=== PATIENT | male | born 1990 | race Caucasian/White ===

== ENCOUNTER 2018-03-20 10:30 | Day surgery (SDC) | payer OTHER ==
[~2018-03-20] VITALS: Ht 177.8 cm; Wt 94.8 kg
[2018-03-20] MEDS ORDERED: NS IRRIG SOLN 1000 ML IR ONE (13:15)
[2018-03-20] MEDS ORDERED: MIDAZOLAM HCL 5 MG/5 ML VIAL IVP ONE (13:15)
[2018-03-20] MEDS ORDERED: OXYMETAZOLINE HCL 0.05% NASAL SPRAY NS ONE (13:15)
[2018-03-20] MEDS ORDERED: GLYCOPYRROLATE 0.2 MG/ML VIAL IJ ONE (13:15)
[2018-03-20] MEDS ORDERED: MUPIROCIN 2% TOPICAL OINTMENT 22 GM TP ONE (13:15)
[2018-03-20] MEDS ORDERED: ROCURONIUM BROMIDE 10 MG/ML (ZEMURON) IV ONE (13:15)
[2018-03-20] MEDS ORDERED: PROPOFOL 200MG/ 20ML VIAL (DIPRIVAN) IV ONE (13:15)
[2018-03-20] MEDS ORDERED: LIDOCAINE/EPI 1% 1:100000 20 ML VIAL INJ ONE (13:15)
[2018-03-20] MEDS ORDERED: NS 500 ML IV.SOLN IV ONE (13:15)
[2018-03-20] MEDS ORDERED: DEXAMETHASONE SOD PHOSPHATE 4 MG/ML VIAL IVP ONE (13:15)
[2018-03-20] MEDS ORDERED: SEVOFLURANE 15 MIN GAS INH ONE (13:15)
[2018-03-20] MEDS ORDERED: LR 1,000 ML IV.SOLN IV ONE (13:15)
[2018-03-20] MEDS ORDERED: NEOSTIGMINE METHYLSULFATE 1 MG/ML, 10 ML VIAL IVP ONE (13:15)
[2018-03-20] MEDS ORDERED: fentaNYL CITRATE/PF 100 MCG/2 ML AMP IVP ONE (13:15)
[2018-03-20] MEDS ORDERED: fentaNYL CITRATE/PF 100 MCG/2 ML AMP IVP PRN ×2 (14:15)
[2018-03-20] MEDS ORDERED: ONDANSETRON HCL 4 MG/2 ML VIAL IVP PRN (14:15)
[2018-03-20] MEDS ORDERED: ONDANSETRON HCL 4 MG/2 ML VIAL ONE (16:04)
[2018-03-20 16:47] VITALS: BP_SYST 129
== END 2018-03-20 17:45 | disposition home or self-care (01) ==
LOC: SDS 10:30 → SMU 10:30 → SDS 17:45
PROVIDERS: ATTEND Otolaryngology
DX: J34.2 Deviated nasal septum (principal); J34.89 Other specified disorders of nose and nasal sinuses; K21.9 Gastro-esophageal reflux disease without esophagitis; F33.9 Major depressive disorder, recurrent, unspecified; E66.3 Overweight; J45.909 Unspecified asthma, uncomplicated; Z79.899 Other long term (current) drug therapy
CPT/HCPCS: 30140; 30520; 88305; 88311; J1100; J2250; J2405; J2704; J2710; J3010; J3490; J7040; J7120